=== PATIENT | male | born 1985 | race African-American/Black ===

== ENCOUNTER 2016-08-03 22:44 | Emergency (ER) | payer SELFPAY ==
[~2016-08-03] VITALS: Ht 175.3 cm; Wt 61.4 kg
[2016-08-03 23:14] VITALS: TEMP 98.9
[2016-08-03 23:46] VITALS: BP 101/64; PULSE 100
== END 2016-08-03 23:46 | disposition short-term general hospital (02) ==
LOC: COL.ER 22:44 → EDBD 22:45 → COL.ER 23:46
DX: S41.011A Laceration without foreign body of right shoulder, initial encounter (principal); S21.211A Laceration without foreign body of right back wall of thorax without penetration into thoracic cavity, initial encounter; S45.911A Laceration of unspecified blood vessel at shoulder and upper arm level, right arm, initial encounter; S41.111A Laceration without foreign body of right upper arm, initial encounter; R40.2352 Coma scale, best motor response, localizes pain, at arrival to emergency department; R40.2122 Coma scale, eyes open, to pain, at arrival to emergency department; R40.2212 Coma scale, best verbal response, none, at arrival to emergency department; R00.0 Tachycardia, unspecified; S00.12XA Contusion of left eyelid and periocular area, initial encounter; R41.82 Altered mental status, unspecified; W45.8XXA Other foreign body or object entering through skin, initial encounter
CPT/HCPCS: A4315; J0330; J2250; J7030

== ENCOUNTER 2016-09-11 11:13 | Emergency (ER) | payer SELFPAY ==
[~2016-09-11] VITALS: Ht 185.4 cm; Wt 77.3 kg
[2016-09-11 11:21] VITALS: BP 128/87; PULSE 73; TEMP 98.3
== END 2016-09-11 12:35 | disposition home or self-care (01) ==
LOC: COL.ER 11:13
DX: S41.111D Laceration without foreign body of right upper arm, subsequent encounter (principal); S11.91XD Laceration without foreign body of unspecified part of neck, subsequent encounter; S31.010D Laceration without foreign body of lower back and pelvis without penetration into retroperitoneum, subsequent encounter; X58.XXXD Exposure to other specified factors, subsequent encounter

== ENCOUNTER 2019-12-26 13:53 | Emergency (ER) | payer SELFPAY ==
[~2019-12-26] VITALS: Ht 185.4 cm; Wt 77.3 kg
[2019-12-26 14:08] VITALS: TEMP 98
[2019-12-26 18:10] VITALS: BP 119/79; PULSE 80
== END 2019-12-26 16:15 | disposition home or self-care (01) ==
LOC: COL.ER 13:53
DX: B34.9 Viral infection, unspecified (principal); Z20.828 Contact with and (suspected) exposure to other viral communicable diseases; Z88.1 Allergy status to other antibiotic agents

== ENCOUNTER 2020-09-08 13:09 | Emergency (ER) | payer SELFPAY ==
[2020-09-08 13:17] VITALS: BP 157/73; TEMP 98.2
[2020-09-08] MEDS ORDERED: BACTRIM DS 8001 TAB PO (14:32)
[2020-09-08 14:46] VITALS: PULSE 75
== END 2020-09-08 14:42 | disposition home or self-care (01) ==
LOC: COL.ER 13:09
DX: L03.011 Cellulitis of right finger (principal)